=== PATIENT | male | born 1955 | race Caucasian/White ===

== ENCOUNTER 2016-10-06 16:08 | Emergency (ER) | payer BC ==
[2016-10-06] MEDS ORDERED: NORMAL SALINE 10 ML SYRINGE FLUSH IVP PRN (16:23)
[2016-10-06] MEDS ORDERED: Belladon/PHENobarbital Elixir 10 ML, Lidocaine Viscous Liquid 2% 15 ML, Mag Hyd/Al Hyd/... PO ONE ×3 (16:24)
[2016-10-06 16:32] LABS: BASOPHILS # (AUTO) 0.09 10*3/UL; BASOPHILS % (AUTO) 1.1 % (0-1); EOSINOPHILS # (AUTO) 0.07 10*3/UL; EOSINOPHILS % (AUTO) 0.8 % (0-8); HEMATOCRIT 46.4 % (42.0-52.0); HEMOGLOBIN 16.2 g/dL (14.0-18.0); LYMPHOCYTES # (AUTO) 1.76 10*3/uL; MEAN CORPUSCULAR HEMOGLOBIN 29.6 PG (27-31); MEAN CORPUSCULAR HGB CONC 34.9 g/dL (33-37); MEAN CORPUSCULAR VOLUME 84.8 FL (80-90); MONOCYTES # (AUTO) 0.79 10*3/UL (0.3-0.8); MONOCYTES % (AUTO) 9.5 % (5-15); NEUTROPHILS # (AUTO) 5.59 10*3/UL; NEUTROPHILS % (AUTO) 67.2 % (50-80); RED BLOOD COUNT 5.47 10^6/uL (4.70-6.10)
[2016-10-06 16:33] LABS: PLATELET MORPHOLOGY COMMENT NORMAL MORPHOLOGY (NORM); RBC MORPHOLOGY COMMENT NORMAL MORPHOLOGY (NORM); WBC MORPHOLOGY COMMENT NORMAL MORPHOLOGY (NORM)
[2016-10-06 16:38] LABS: BLOOD UREA NITROGEN 15 mg/dL (7-22); BUN/CREATININE RATIO 18.75 (6-20); CALCIUM 9.7 mg/dL (8.7-10.7); EST GLOMERULAR FILTRATION > 60 (>60 ml/min/1.73m(2)); LIPASE 146 IU/L (23-300); SERUM ALBUMIN 4.1 g/dL (3.5-4.8)
--- NOTE | 2016-10-06 16:42 | PDOC ---
Chest Pain HPI - General Chief Complaint: Chest Pain Stated Complaint: CHEST TIGHTNESS STARTING THIS AM Date Seen by Provider: 10/06/16 Time Seen by Provider: 16:22 Source: Patient Exam Limitations: POSITIVE: No limitations Treatment Prior to Arrival: REPORTS: None Nurse's Notes Reviewed & Considered: Yes - History of Present Illness Initial Comments: Travis is a 61-year-old male who presents to the emergency department for evaluation of chest discomfort. He describes this as a tightness. Started earlier today. No specific exacerbating or relieving factors. No radiation. Mostly in the center of the chest. He may have had some mild symptoms last night. No significant history of similar in the past. Patient is a diabetic and has been largely noncompliant with his medications and typically does have hyperglycemia. He had nausea last week but none this week. Patient denies any significant shortness of breath. No pain or swelling in his lower extremities. - Patient Home Medications Home Medications: Home Medications Amoxicillin 500 mg PO BID 10/06/16 Ibuprofen 800 mg PO BID PRN 10/06/16 Metformin HCl [Metformin HCl ER] 1,000 mg PO BID 10/06/16 - Patient Allergies Allergies/Adverse Reactions: Allergies Allergy/AdvReac Type Severity Reaction Status Date / Time No Known Allergies Allergy Verified 10/06/16 16:26 Past Medical History - heen HEENT History: Denies History Cardiovascular History: Denies History Respiratory History: Denies History Gastrointestinal History: Denies History Genitourinary History: Denies History Endocrine History: Type 2 Diabetes (insulin) Musculoskeletal History: Denies History Neurological History: Denies History Blood Disorders: Denies History Psychiatric History: Denies History Cancer History: Denies History Tobacco Use: Unknown If Ever Smoked Alcohol Use: None Substance Use Type: None Type / Date of Surgery: Orthopedic Significant Family History: No pertinent family hx Past Medical History Reviewed: Reviewed - Changes Made ROS Constitution: REPORTS: Denies Symptoms Cardiovascular: REPORTS: Chest Pain Respiratory: REPORTS: Denies Resp Symptoms Neurological: REPORTS: Denies Neuro Symptoms Gastrointestinal: REPORTS: Denies GI Symptoms Endocrine: REPORTS: Denies Symptoms Musculoskeletal: REPORTS: Denies MS Symptoms Genitourinary: REPORTS: Denies Symptoms Eyes: REPORTS: Denies Symptoms Skin: REPORTS: Denies Skin Symptoms Psychiatric: POSITIVE: Denies Psych Symptoms Chest Pain PE - General Appearance General Appearance: REPORTS: Alert, Cooperative, No Acute Distress - HEENT HEENT: POSITIVE: Head Inspection Nml, Eyes Inspection Nml, Nose Inspection Nml - Neck Neck: REPORTS: Normal Inspection - Respiratory Respiratory: REPORTS: No Respiratory Distress, Breath Sounds Normal, Chest Non- Tender. DENIES: Wheezes, Rales, Rhonchi - Cardiovascular Cardiovascular: REPORTS: Regular Rate and Rhythm, Heart Sounds Normal, Equal Pulses - Abdomen Abdomen: Soft: (All Quadrants), Normal Bowel Sounds: (All Quadrants), No Splenomegaly: (All Quadrants), No Hepatomegaly: (All Quadrants) Additional Abdominal Details: Minimal discomfort in the epigastrium to deep palpation - Skin Skin: REPORTS: Intact, Normal For Race, Warm - Extremities Extremity: Non-Tender: (All Extremities), Normal Inspection: (All Extremities) - Neurological / Psychological Neurological: POSITIVE: Affect Apporpriate Chest Pain Progress - Results Reviewed by me Xrays/CTs/US Reviewed by me: Yes Lab Results Reviewed: Yes Lab Results:: Laboratory Results 10/06/16 10/06/16 Range/Units 16:20 16:23 WBC 8.32 (4.8-10.8) 10^3/uL RBC 5.47 (4.70-6.10) 10^6/uL Hgb 16.2 (14.0-18.0) g/dL Hct 46.4 (42.0-52.0) % MCV 84.8 (80-90) FL MCH 29.6 (27-31) PG MCHC 34.9 (33-37) g/dL RDW Std Deviation 39.8 (39-50) fL RDW Coeff of [place] 12.9 (11.5-14.5) % Plt Count 226 (140-350) 10*3/uL MPV 10.0 (7.4-12.2) FL Immature Gran % (Auto) 0.2 (0-5) % Neut % (Auto) 67.2 (50-80) % Lymph % (Auto) 21.2 (10-50) % [place] % (Auto) 9.5 (5-15) % Eos % (Auto) 0.8 (0-8) % Baso % (Auto) 1.1 H (0-1) % Immature Gran # (Auto) 0.02 10*3/UL Neut # (Auto) 5.59 10*3/UL Lymph # (Auto) 1.76 10*3/uL [place] # (Auto) 0.79 (0.3-0.8) 10*3/UL Eos # (Auto) 0.07 10*3/UL Baso # (Auto) 0.09 10*3/UL WBC Morphology Comment Normal morphology (NORM) Plt Morphology Comment Normal morphology (NORM) RBC Morph Comment Normal morphology (NORM) D-Dimer 0.26 (0.00-0.59) mg/L Sodium 136 (135-145) meq/L Potassium 4.2 (3.8-5.2) meq/L Chloride 101 (98-112) meq/L Carbon Dioxide 23 (23-33) meq/L Anion Gap 12 (5-20) BUN 15 (7-22) mg/dL Creatinine 0.8 (0.70-1.50) mg/dL Estimated GFR > 60 (>60 ml/min/1.73m(2)) BUN/Creatinine Ratio 18.75 (6-20) Glucose 360 H (78-110) mg/dL Calculated Osmolality 297.0 H (267-292) mOsm/kg Calcium 9.7 (8.7-10.7) mg/dL Total Bilirubin 0.8 (0.3-1.2) mg/dL AST 28 (21-57) IU/L ALT 37 (21-72) IU/L Alkaline Phosphatase 110 (38-126) IU/L Troponin I < 0.012 (< 0.040) ng/mL Total Protein 7.6 (6.1-8.0) g/dL Albumin 4.1 (3.5-4.8) g/dL Globulin 3.6 (2.50-4.10) g/dL Albumin/Globulin Ratio 1.10 L (1.3-2.0) mg/g Lipase 146 (23-300) IU/L EKG Interpreted/Reviewed By Me:: Yes (Inferior Q waves) - Patient's Progress MDM / ED Course: Travis is a 61-year-old male who presents to the emergency department with chest discomfort. His vital signs are unremarkable and examination demonstrates well-appearing male in no acute distress. Differential diagnosis includes but is not limited to ACS, pneumonia, pulmonary embolism, pneumothorax. Patient's 12-lead EKG demonstrates some inferior Q waves which are possibly related to prior myocardial disease. I did discuss this with patient and he indicates approximately 10 years ago he was told something similar and had a negative stress test evaluation. Patient's chest x-ray here demonstrates no evidence of pneumonia or pneumothorax. There is pending radiology overview at this time. Laboratory studies do straight negative d- dimer which makes pulmonary embolism less likely. Troponin was also negative. Given negative troponin and EKG that does not demonstrate acute findings making ACS somewhat less likely. Laboratory studies did demonstrate hyperglycemia though patient indicates that this is baseline elevated for him and his bicarbonate is within normal limits. Patient was given a GI cocktail though his symptoms had improved prior to discharge and a GI cocktail. We will have him follow-up with primary care provider for further evaluation. Patient Care Time - Estimated PCT Patient Care Time (In Minutes): 40 Vital Signs - Recent Vital Signs Vital Signs: Vital Signs (Last 8 hours) Temp Pulse Pulse Resp BP Pulse Ox 10/06/16 16:16 96 10/06/16 16:08 97.4 F 103 H 15 146/90 95 - VS Reviewed Vital Signs Reviewed: Yes Discharge Clinical Impression: Chest pain Discharge Disposition: Discharged to Home Condition: Good Patient Instructions Given at Discharge: Chest Pain (ED) Additional Instructions: Thank you for coming to the emergency department. Please continue taking a daily aspirin and follow up with your primary care provider for further evaluation and treatment of your high blood glucose. Please return to the emergency department for any worsening symptoms.
--- NOTE | 2016-10-06 16:50 | EKG ---
[address] [address] Measurements Intervals [place] Rate: 96 P: 72 WI: 149 QRS: -85 QRSD: 109 T: 33 QT: 363 QTc: 417 Interpretive Statements SINUS RHYTHM PATTERN CONSISTENT WITH PULMONARY DISEASE INFERIOR MYOCARDIAL INFARCTION [40+ ms Q WAVE AND/OR ST/T ABNORMALITY IN II/aVF], OF INDETERMINATE AGE INTERPRETATION BASED ON A DEFAULT AGE OF 40 YEARS No previous ECG available for comparison Electronically Signed On 10-07-16 09:10:50 MDT by Gato Kelley MD [email or web address]
[2016-10-06 17:27] VITALS: RESP 15; TEMP 97.4
--- NOTE | 2016-10-06 20:05 | DI ---
XR CXR 2VW PA/LAT,10/06/2016 4:23 PM: Clinical History: Chest pain Previous Exam: None at this facility. Findings: PA and lateral views of the chest are obtained, and demonstrate clear lungs. The cardiomediastinum an d bony thorax are unremarkable. Impression: No acute cardiopulmonary disease.
== END 2016-10-06 17:59 | disposition home or self-care (01) ==
LOC: ER 16:08
DX: R07.9 Chest pain, unspecified (principal); E11.9 Type 2 diabetes mellitus without complications; Z79.4 Long term (current) use of insulin
CPT/HCPCS: 36415; 71020; 80053; 83690; 84484; 85025; 85379; 93005; 93010; 99284

== ENCOUNTER → 2016-10-09 | Outpatient (CLI) | payer BC ==
[2016-10-09 12:52] LABS: CHOL/HDL RATIO 5.5 RATIO (0-4.0); LDL CHOLESTEROL,CALCULATED 159.2 mg/dL
[2016-10-09 12:55] LABS: HEMOGLOBIN A1C 11.64 % (4.2-6.0)
[2016-10-09 13:11] LABS: CREATININE, URINE 137.8 MG/DL (15-500)
== END ==
LOC: MOB LAB 11:31
PROVIDERS: ATTEND Nurse Practitioner
DX: E08.21 Diabetes mellitus due to underlying condition with diabetic nephropathy (principal)
CPT/HCPCS: 36415; 80061; 82043; 82565; 83036; 84443